=== PATIENT | male | born 1995 | race Two or more races ===

== ENCOUNTER 2019-04-22 03:36 | Emergency (ER) | payer SELFPAY ==
[~2019-04-22] VITALS: Ht 176.5 cm; Wt 91.4 kg
[2019-04-22] MEDS ORDERED: BACITRACIN 0.9 GM PACKET OINTMENT TP ONE ×2 (04:05→04:45)
[2019-04-22] MEDS ORDERED: PERTUSS(ACELL),DIPH,TET VAC/PF 0.5 ML VIAL IM ONE ×2 (04:05→04:45)
[2019-04-22 04:17] VITALS: BP 127/83
== END 2019-04-22 04:53 | disposition home or self-care (01) ==
LOC: EMS 03:36 → EDSEX 03:36 → EMS 04:53
DX: S01.01XA Laceration without foreign body of scalp, initial encounter (principal); W22.8XXA Striking against or struck by other objects, initial encounter; Y93.89 Activity, other specified; Y92.89 Other specified places as the place of occurrence of the external cause; Y99.8 Other external cause status
CPT/HCPCS: 12001; 90471; 90715